=== PATIENT | male | born 1965 | race Caucasian/White ===

== ENCOUNTER 2019-02-28 12:07 | Emergency (ER) | payer OTHER ==
[~2019-02-28] VITALS: Ht 172.7 cm; Wt 74.8 kg
[2019-02-28] MEDS ORDERED: LOPRESSOR50 MG PO (13:47)
[2019-02-28] MEDS ORDERED: LIPITOR 40 MG T40 M1 PO (13:48)
[2019-02-28] MEDS ORDERED: PLAVIX 75 MG TA75 MG PO (13:48)
[2019-02-28] MEDS ORDERED: LISINOPRIL2.5 MG PO (13:48)
[2019-02-28] MEDS ORDERED: XARELTO20 MG PO (13:49)
[2019-02-28] MEDS ORDERED: NORFLEX100 MG PO (13:56)
[2019-02-28] MEDS ORDERED: PREDNISONE 10 M10 MG PO (13:56)
[2019-02-28 14:22] VITALS: BP 195/87
== END 2019-02-28 14:23 | disposition home or self-care (01) ==
LOC: ER 12:07
DX: S39.012A Strain of muscle, fascia and tendon of lower back, initial encounter (principal); Z95.5 Presence of coronary angioplasty implant and graft; W01.0XXA Fall on same level from slipping, tripping and stumbling without subsequent striking against object, initial encounter; Y93.89 Activity, other specified; Y92.89 Other specified places as the place of occurrence of the external cause; Y99.8 Other external cause status

== ENCOUNTER 2019-10-02 20:26 | Emergency (ER) | payer OTHER ==
[~2019-10-02] VITALS: Ht 175.3 cm; Wt 75.8 kg
[~2019-10-02 20:26] MED LIST: LIPITOR 40 MG T40 M1 PO; LISINOPRIL2.5 MG PO; LOPRESSOR50 MG PO; NORFLEX100 MG PO; PLAVIX 75 MG TA75 MG PO; PREDNISONE 10 M10 MG PO; XARELTO20 MG PO
[2019-10-02] MEDS ORDERED: TRAMADOL 50 MG50 MG PO (22:10)
[2019-10-02 22:17] VITALS: BP 154/93
== END 2019-10-02 22:24 | disposition home or self-care (01) ==
LOC: ER 20:26
DX: S60.211A Contusion of right wrist, initial encounter (principal); Z79.899 Other long term (current) drug therapy; Z98.890 Other specified postprocedural states; Z95.5 Presence of coronary angioplasty implant and graft; W11.XXXA Fall on and from ladder, initial encounter; Y93.89 Activity, other specified; Y92.89 Other specified places as the place of occurrence of the external cause; Y99.9 Unspecified external cause status